=== PATIENT | male | born 2005 | race American Indian/Alaskan Native ===

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

== ENCOUNTER 2024-12-24 17:48 | Emergency (ER) | payer MEDICAID ==
[2024-12-24] MEDS: Ondansetron 4 MG/2 ML SDV IVPUSH ONE (18:09)
[2024-12-24 18:21] LABS: PLATELET COUNT,PLT 766 10^3/uL (150-450); RED BLOOD CELL COUNT 1.79 10^6/uL (4.6-6.2); WHITE BLOOD CELL COUNT,WBC 12.6 10^3/uL (5.0-10.0)
[2024-12-24 18:23] LABS: BASOPHILS PERCENT AUTO 0.5 % (0.0-1.0); EOSINOPHILS PERCENT AUTO 0.2 % (1.0-3.0); LYMPHOCYTES PERCENT AUTO 13.9 % (20.5-50.1); MONOCYTES PERCENT AUTO 8.9 % (2-8); NEUTROPHILS PERCENT AUTO 76.5 % (42.2-75.2)
[2024-12-24 18:28] LABS: INR 1.0 (0.9-1.2)
[2024-12-24 18:32] LABS: ALANINE AMINOTRANSFERASE,ALT 11.0 U/L (16-63); ASPARTATE AMNIOTRANSFERASE,AST 10.0 U/L (15-37); BILIRUBIN DIRECT 0.1 mg/dL (0.0-0.2); BILIRUBIN INDIRECT 0.2; BILIRUBIN TOTAL 0.3 mg/dL (0.2-1.0); BLOOD UREA NITROGEN,BUN 5.0 mg/dL (7-18); CARBON DIOXIDE,CO2 24.0 mmol/L (21-32); CHLORIDE,CL 99.0 mmol/L (98-107); CREATININE 1.04 mg/dL (0.70-1.30); EST CRCL DRUG DOSING (CG) 120.67 mL/min; GLUCOSE RANDOM 84.0 mg/dL (70-99); POTASSIUM,K 3.1 mmol/L (3.5-5.1); PROTEIN TOTAL,TP 6.8 g/dL (6.4-8.2); SODIUM,NA 133.0 mmol/L (136-145)
[2024-12-24 18:33] LABS: A/G RATIO 0.66; ESTIMATED GFR 105.0 mL/min (>=60)
[2024-12-24 19:02] VITALS: BP 105/40; PULSE 125
[2024-12-24 19:13] LABS: IRON,FE 6 ug/dL (65-175); PERCENT FE SATURATION 1.2 % (20.0-50.0)
[2024-12-24 20:39] LABS: LYMPHOCYTES PERCENT MAN 15 % (20-50); MONOCYTES PERCENT MAN 4 % (2-8); NRBC MANUAL 1 /100WBC; SEG NEUTROPHILS PERCENT MAN 81 % (42-75)
== END 2024-12-24 19:30 ==
LOC: DL.ED 17:48 → EEVIPCON 17:48 → DL.ED 19:30
DX: D64.9 Anemia, unspecified (principal); R00.0 Tachycardia, unspecified; E86.0 Dehydration
CPT/HCPCS: 36415; 36430; 80048; 80076; 82150; 82272; 82728; 83540; 83550; 83690; 85025; 85610; 86850; 86900; 86901; 86920; 86922; 93005; 93010; 96361; 96374; 99284; 99285; J2405; J7030; P9016